=== PATIENT | female | born 1945 | race Caucasian/White ===

== ENCOUNTER 2017-12-27 11:27 | Inpatient (IN) | payer MEDICARE, OTHER, MEDICAID ==
[~2017-12-27] VITALS: Ht 165.1 cm; Wt 74.7 kg
[~2017-12-27 11:27] MED LIST: ALPR0.5T99 PO; ATOR20TA42 PO; AZIT250T43 PO; OMEP20TA PO; PRIN10TA PO
[2017-12-27] MEDS ORDERED: ONDANSETRON HCL 4 MG/2 ML VIAL IV ONE (12:00)
[2017-12-27] MEDS ORDERED: PROPOFOL 200 MG/20 ML AMP IV ONE (12:00)
[2017-12-27] MEDS ORDERED: ROCURONIUM INJ 50 MG/5 ML SYRINGE IV PUSH ONE (12:00)
[2017-12-27] MEDS ORDERED: LIDOCAINE HCL 1% PF 5 ML SYRINGE OTHER ONE (12:00)
[2017-12-27] MEDS ORDERED: DEXAMETHASONE SOD PHOS 4 MG/ML VIAL IV ONE (12:00)
[2017-12-27] MEDS ORDERED: NEOSTIGMINE 5 MG/5 ML SYRINGE IV PUSH ONE (12:00)
[2017-12-27] MEDS ORDERED: GLYCOPYRROLATE 1 MG/5 ML SYRINGE IV PUSH ONE (12:00)
[2017-12-27] MEDS ORDERED: LACTATED RINGER'S 1000 ML IV PRN (12:15)
[2017-12-27] MEDS ORDERED: CHLORHEXIDINE GLUCONATE 2 % 1 PACK (2 CLOTHS) TOPICAL PRN (12:15)
[2017-12-27] MEDS ORDERED: SODIUM CHLORID 0.9% 500 ML IV PRN (12:15)
[2017-12-27] MEDS ORDERED: METOPROLOL TARTRATE 25 MG TAB PO PRN (12:15)
[2017-12-27] MEDS ORDERED: ceFAZolin 2 GM PREMIX 50 ML IV SCH (12:30)
[2017-12-27] MEDS ORDERED: METRONIDAZOLE 500 MG/100 ML ISONTONIC SOLN IV SCH (12:30)
[2017-12-27] MEDS ORDERED: ALVIMOPAN 12 MG CAPSULE - On Call PO SCH (12:45)
[2017-12-27] MEDS ORDERED: ALPR2TAB3 PO (12:55)
[2017-12-27] MEDS ORDERED: LOSA50TA PO (12:55)
[2017-12-27] MEDS ORDERED: FENO160T PO (12:55)
[2017-12-27] MEDS ORDERED: PANT40TA3 PO (12:55)
[2017-12-27] MEDS ORDERED: CALC500T37 PO (13:02)
[2017-12-27] MEDS ORDERED: CHOL5000 PO (13:02)
[2017-12-27] MEDS ORDERED: VITA100022 PO (13:03)
[2017-12-27] MEDS ORDERED: GARL1000 PO (13:04)
[2017-12-27 13:19] LABS: AUTOMATED NEUTROPHIL # 3.7 TH/MM3 (1.8-7.7); BASOPHIL % 0.5 % (0.0-2.0); EOSINOPHIL % 0.8 % (0.0-4.0); HEMATOCRIT 38.5 % (35.0-46.0); LYMPH % 29.9 % (9.0-44.0); LYMPHOCYTE # 1.8 TH/MM3 (1.0-4.8); MEAN CORPUSCULAR HEMOGLOBIN 30.1 PG (27.0-34.0); MEAN CORPUSCULAR HGB CONC 33.8 % (32.0-36.0); MEAN PLATELET VOLUME 7.9 FL (7.0-11.0); MONOCYTE # 0.4 TH/MM3 (0-0.9); NEUT % 61.8 % (16.0-70.0); PLATELET COUNT 245 TH/MM3 (150-450); RED BLOOD COUNT 4.32 MIL/MM3 (4.00-5.30); RED CELL DISTRIBUTION WIDTH 13.4 % (11.6-17.2); WHITE BLOOD COUNT 5.9 TH/MM3 (4.0-11.0)
[2017-12-27] MEDS ORDERED: BUPIVACAINE/EPINEPHRINE 0.25% 50 ML VIAL ONE (13:28)
[2017-12-27 13:40] LABS: ALBUMIN 3.9 GM/DL (3.4-5.0); ALT (GPT) 15 U/L (10-53); AST (GOT) 17 U/L (15-37); BLOOD UREA NITROGEN 11 MG/DL (7-18); CALCIUM 8.7 MG/DL (8.5-10.1); CHLORIDE 109 MEQ/L (98-107); CREATININE 0.79 MG/DL (0.50-1.00); GLOMERULAR FILTRATION RATE 72 ML/MIN (>89); GLUCOSE,RANDOM 95 MG/DL (74-106); SODIUM (NA) 140 MEQ/L (136-145)
[2017-12-27 13:42] LABS: ALKALINE PHOSPHATASE 34 U/L (45-117); TOTAL BILIRUBIN ADULT 0.5 MG/DL (0.2-1.0); TOTAL PROTEIN 7.2 GM/DL (6.4-8.2)
[2017-12-27] MEDS ORDERED: DO NOT ADM ANY ANTICOAGULANT DRUGS PRN (15:31)
--- NOTE | 2017-12-27 15:31 | PD.PROCEDR ---
Procedure Note Procedure Operative report Preoperative diagnosis Fungating polyp highly atypical suspicious for adenocarcinoma of the colon transverse colon Postoperative diagnosis Same Procedure Laparoscopic assisted partial colectomy transverse colon Surgeon Akbar Benitez MD [employer]ist surgeon Parth Brothers MD Anesthesia General endotracheal Indications for procedure. 72-year-old woman sent to me in consultation by Dr. DANIA OLIVER for evaluation of a fungating polyp of the transverse colon. Biopsy demonstrated atypical changes bordering on adenocarcinoma. Patient was desirous of excision. Laparoscopic-assisted resection was offered. Intraoperative findings Mid transverse colon including Birdie ink markings and palpable abnormality between the 2 markings sent to pathology for permanent section. Suture on distal margin. Estimated blood loss 10 mL. Description of procedure in detail The patient was identified as Jaclyn Hayward taken to the operating room and placed in a supine position. Sequential compression devices were placed on bilateral lower extremities. Following induction of adequate general endotracheal anesthesia patient's abdomen was prepped and draped in usual sterile fashion with Betadine. A timeout procedure was performed. Following completion of the timeout procedure everyone's satisfaction within the room local anesthetic was infiltrated in the supraumbilical midline. A 2 cm vertical incision was carried out the scalpel dissection continued posteriorly to level of midline fascia in the supraumbilical position. The base of the umbilicus was retracted anteriorly the supraumbilical fascia was incised and entering the peritoneal cavity facilitative the surgeon's finger. The applied medical balloon was sewn trochars placed in the peritoneal cavity splint inflated and CO2 insufflation to level of 15 mmHg ensued. 2 right-sided 5 mm trochars 1 left upper quadrant 5 mm trocar was then placed into the peritoneal cavity under direct laparoscopic view after incision and skin with the scalpel. Attention was turned first to mobilizing a generous omentum superiorly and placing the patient in slight Trendelenburg position facilitate this. The 2 Birdie ink markings were identified which were positioned both proximally distally to the fungating polyp by Dr. DANIA OLIVER during colonoscopy. Using the harmonic scalpel the omentum was mobilized proximal and distal to the area of concern at least 8 cm in each direction. The mid transverse colon which is where the area of concern was located was already fairly mobile. Following this laparoscopic mobilization it was felt the area of concern could be brought out through a small upper midline incision to facilitate resection and anastomosis. More local anesthetic was placed in the supraumbilical midline in the previous and the incision was extended about 6 cm superiorly. Electrocautery was used for hemostasis and dissection continued posteriorly down the level of the midline fascia. The fascial incision from the supraumbilical port was extended superiorly allowing for the peritoneal incision to be the length of the skin incision. The small size Riddhi YAIR a wound retracting system was placed in the normal fashion in the transverse colon was easily identified and brought up through the wound. The distal resection or division was created first using a linear cutting stapling device after a window in the mesentery was developed with electrocautery. Harmonic Scalpel was used then to divide the mesentery of the transverse colon. On 2 occasions 3-0 silk and 2-0 Vicryl ligatures were used to divide larger vessels within the mesentery. Attention was then turned to the proximal division of the colon. About 8 cm proximal to the area of concern transverse colon was selected and divided with the linear cutting stapling device after window in the mesentery was developed with electrocautery. Mesentery was then taken down using the harmonic scalpel. The main vascular supply to this segment of the colon was then divided between My clamps and ligated with 2-0 Vicryl ties. Specimen was then removed in its entirety after placing a silk suture on the distal margin. It was passed off the field for pathologic evaluation. Attention was then turned towards a primary functional end-to-end anastomosis. Using 3-0 silk the line of the tinea of the proximal and distal limbs of the transverse colon small defects in the tinea adjacent to the staple lines were made with electrocautery and the linear cutting stapling device was used in a traditional fashion to create a functional end-to-end, side to side anastomosis. The staple lines were examined inside the new anastomosis and there is no evidence of hemorrhage. The end of the opening was then closed with a TA stapling device. Three-year silk sutures were used to take pressure off the distal staple line as well as to cover the staple lines approximately using appendices epiploic a fatty tissue to reinforce the closure. There is no evidence of tension on the anastomosis. It appeared patent. There was no large mesenteric rent to close. The anastomosis was returned to the peritoneal cavity and generous omentum was draped over the new anastomosis. The wound retractor was removed and the midline fascial incision was closed with a running #1 single-stranded PDS suture. The subcutaneous space was irrigated copiously with saline. Interrupted 2-0 Vicryl sutures were placed to approximate subcutaneous fatty tissue and the skin was approximated with a running 4-0 Monocryl septic your suture in the upper midline as well as at the 5 mm trocar sites. Dressings were applied with Mastisol half-inch brown Steri- Strips. An island type dressing was placed over the supraumbilical midline incision. The patient tolerated the procedures without apparent complication. Sponge needle and instrument counts were correct at the end of the case. Akbar Benitez MD Dec 27, 2017 15:31
[2017-12-27] MEDS ORDERED: MIDAZOLAM HCL 2 MG/2 ML VIAL ONE (15:40)
[2017-12-27] MEDS ORDERED: Post-op Orders (for Pharmacy) XX ONE (15:45)
[2017-12-27] MEDS ORDERED: ENALAPRILAT 1.25 MG/ML VIAL IV PUSH PRN (15:45)
[2017-12-27] MEDS ORDERED: ALPRAZolam 1 MG TAB PO PRN (15:45)
[2017-12-27] MEDS ORDERED: ONDANSETRON HCL 4 MG/2 ML VIAL IV PUSH PRN (15:45)
[2017-12-27] MEDS ORDERED: ACETAMINOPHEN 1000 MG/100 ML 100 ML IV ONE ×2 (15:55→16:00)
[2017-12-27] MEDS ORDERED: *morphine SULFATE 10 MG/ML PERIprocedure ONLY ONE (16:11)
[2017-12-27] MEDS: LACTATED RINGER'S 1000 ML INJ 1,000 ML IV SCH (16:15)
[2017-12-27] MEDS: KETOROLAC TROMETHAMINE 30 MG/ML (IVP) VIAL IVP PRN ×2 (16:20→23:59)
[2017-12-27] MEDS ORDERED: *morphine SULFATE 4 MG/ML PERIprocedure ONLY ONE (16:47)
[2017-12-27 21:18] VITALS: BP 146/70; PULSE 91; RESP 20; TEMP 96.3; O2SAT 96
[2017-12-27] MEDS: ACETAMINOPHEN 1000 MG/100 ML 100 ML IV SCH (22:44)
[2017-12-28] VITALS: BP 120/58; PULSE 73; RESP 18; TEMP 97.5; O2SAT 95
[2017-12-28] MEDS: LACTATED RINGER'S 1000 ML INJ 1,000 ML IV SCH ×3 (02:00→23:10)
[2017-12-28 04:00] VITALS: BP 123/61; PULSE 73; RESP 18; TEMP 96.3; O2SAT 92
[2017-12-28] MEDS: ACETAMINOPHEN/HYDROcodone 325 MG/5 MG TAB PO PRN ×3 (04:08→23:05)
[2017-12-28] MEDS: ACETAMINOPHEN 1000 MG/100 ML 100 ML IV SCH ×3 (06:36→19:48)
[2017-12-28 07:51] VITALS: BP 98/54; PULSE 107; RESP 16; TEMP 96.9; O2SAT 92
--- NOTE | 2017-12-28 08:07 | HHI.PR ---
Subjective Subjective Notes Patient had a difficult night as she was unable to void on her own. She underwent an I and O cath twice which helped relieve her bladder distention. She has had a previous bladder sling procedure and lately has been having problems voiding too much, now she cannot avoid enough. She is tolerated liquids without emesis. She had mild nausea. She is hungry and would like some food and some tea which she says always helps her go to the bathroom. Objective Vitals/I&O Vital Signs Date Time Temp Pulse Resp B/P (MAP) Pulse Ox O2 Delivery O2 Flow Rate FiO2 12/28/17 07:51 96.9 107 16 98/54 (69) 92 12/27/17 20:30 Nasal Cannula 2 Labs Laboratory Tests Test 12/27/17 12:45 White Blood Count 5.9 Red Blood Count 4.32 Hemoglobin 13.0 Hematocrit 38.5 Mean Corpuscular Volume 89.0 Mean Corpuscular Hemoglobin 30.1 Mean Corpuscular Hemoglobin Concent 33.8 Red Cell Distribution Width 13.4 Platelet Count 245 Mean Platelet Volume 7.9 Neutrophils (%) (Auto) 61.8 Lymphocytes (%) (Auto) 29.9 Monocytes (%) (Auto) 7.0 Eosinophils (%) (Auto) 0.8 Basophils (%) (Auto) 0.5 Neutrophils # (Auto) 3.7 Lymphocytes # (Auto) 1.8 Monocytes # (Auto) 0.4 Eosinophils # (Auto) 0.0 Basophils # (Auto) 0.0 CBC Comment DIFF FINAL Differential Comment Blood Urea Nitrogen 11 Creatinine 0.79 Random Glucose 95 Total Protein 7.2 Albumin 3.9 Calcium Level 8.7 Alkaline Phosphatase 34 Aspartate Amino Transf (AST/SGOT) 17 Alanine Aminotransferase (ALT/SGPT) 15 Total Bilirubin 0.5 Sodium Level 140 Potassium Level 3.9 Chloride Level 109 Carbon Dioxide Level 26.0 Anion Gap 5 Estimat Glomerular Filtration Rate 72 Cardiovascular: Regular Lungs: Clear Abdomen: Non-distended, Other (Her incisions are all healing well without signs of infection. There is no drainage from the incisions were on the dressing. Her bowel sounds are normal.), Post-op tenderness (Her incision sites are all clean and dry. The dressing has no drainage. She has normal bowel sounds.) Extremities: No edema, Perfused, SCD's on A/P Assessment and Plan Postoperative day 1 status post laparoscopic-assisted segmental resection of the transverse colon for fungating polyp. Problems with emptying her bladder. She has history of bladder sling. If she is unable to void on her own we will place a García catheter and leave it in. She would like opportunity to eat some regular food. I have ordered a regular diet. She normally only takes 1 mg of Xanax not two and that was changed. I will check her basic metabolic profile and magnesium levels. I talked to both the patient and the bedside RN about the importance of her walking in the halls today. Akbar Benitez MD Dec 28, 2017 08:06
[2017-12-28] MEDS: LOSARTAN 50 MG TAB PO SCH (08:58)
[2017-12-28] MEDS ORDERED: GARLIC 1000 MG PO SCH (09:00)
[2017-12-28] MEDS: CYANOCOBALAMIN 1,000 MCG TAB PO SCH (09:41)
[2017-12-28] MEDS: PANTOPRAZOLE SOD 40 MG DELAYED RELEASE TAB PO SCH (09:42)
[2017-12-28] MEDS: FENOFIBRATE 145 MG TAB PO SCH (09:42)
[2017-12-28] MEDS: ALVIMOPAN 12 MG CAPSULE - Post-op dosing PO SCH ×2 (09:42→19:48)
[2017-12-28] MEDS: ASCORBIC ACID 500 MG TAB PO SCH (09:42)
[2017-12-28] MEDS: CHOLECALCIFEROL (VIT D3) 5000 UNIT CAP PO SCH (09:42)
[2017-12-28 10:09] LABS: BICARBONATE 24.5 MEQ/L (21.0-32.0); CALCIUM 7.7 MG/DL (8.5-10.1); CREATININE 0.74 MG/DL (0.50-1.00); MAGNESIUM 1.5 MG/DL (1.5-2.5)
[2017-12-28 12:00] VITALS: BP 117/58; PULSE 68; RESP 16; TEMP 97.9; O2SAT 98
[2017-12-28] MEDS: ENOXAPARIN SODIUM 40 MG/0.4 ML SYRINGE SQ SCH (15:16)
[2017-12-28 15:57] VITALS: BP 135/64; PULSE 65; RESP 18; TEMP 97.3; O2SAT 97
[2017-12-28] MEDS ORDERED: BENZOCAINE 6 MG/MENTHOL 10 MG LOZENGE BUCCAL PRN (18:45)
[2017-12-28] MEDS ORDERED: PHENOL 1.4% SOLN 180 ML BTL OROPHARYNG PRN (19:00)
[2017-12-28 20:00] VITALS: BP 174/86; PULSE 68; RESP 20; TEMP 98.3; O2SAT 95
[2017-12-28] MEDS ORDERED: ALVIMOPAN 12 MG CAPSULE PO SCH (21:00)
--- NOTE | 2017-12-28 21:49 | EKG ---
Date Performed: 12/27/2017 Time Performed: 12:21:46 PTAGE: 72 years EKG: Sinus rhythm NONSPECIFIC T-WAVE ABNORMALITY BORDERLINE ECG PREVIOUS TRACING : 08/31/2009 17.04 No significant change from previous tracing noted. DOCTOR: Darien Gomes Interpretating Date/Time 12/28/2017 21:47:42
[2017-12-28] MEDS: ALPRAZolam 1 MG TAB PO PRN (23:07)
[2017-12-29] VITALS: BP 131/62; PULSE 64; RESP 20; TEMP 96.6; O2SAT 93
[2017-12-29] MEDS: ACETAMINOPHEN 1000 MG/100 ML 100 ML IV SCH ×3 (06:13→20:13)
[2017-12-29] MEDS: LACTATED RINGER'S 1000 ML INJ 1,000 ML IV SCH ×2 (06:25→18:00)
[2017-12-29 08:00] VITALS: BP 111/64; PULSE 58; RESP 17; TEMP 97.9; O2SAT 95
--- NOTE | 2017-12-29 08:07 | HHI.PR ---
Subjective Subjective Notes Patient slept very well overnight. She woke up this morning feeling much better than she had the day before. She indicates her only problem continues to be her bladder. She has not passed flatus or had a bowel movement yet. She is taking in minimal oral intake with taking some liquids and a small amount of regular food. Objective Vitals/I&O Vital Signs Date Time Temp Pulse Resp B/P (MAP) Pulse Ox O2 Delivery O2 Flow Rate FiO2 12/29/17 00:00 96.6 64 20 131/62 (85) 93 12/27/17 20:30 Nasal Cannula 2 Labs Laboratory Tests Test 12/28/17 08:51 Blood Urea Nitrogen 13 Creatinine 0.74 Random Glucose 99 Calcium Level 7.7 Magnesium Level 1.5 Sodium Level 136 Potassium Level 4.0 Chloride Level 104 Carbon Dioxide Level 24.5 Anion Gap 8 Estimat Glomerular Filtration Rate 77 Cardiovascular: Regular Lungs: Clear Abdomen: Non-distended, Other (Her incision sites are all clean and dry. There is minimal dried bloody drainage on the dressing in the supraumbilical position which was removed. There is no erythema. She has normal bowel sounds. ), Post-op tenderness Extremities: No edema, Perfused, SCD's on A/P Assessment and Plan Postoperative day 2 status post laparoscopic-assisted segmental resection of the transverse colon for fungating polyp. Patient will get up and walk the halls a lot today. Plan will be for to remove her García catheter tonight in hopes that she will be able to void on her own tomorrow. Once she is passing flatus and/or moving her bowels and tolerating oral diet and pain medication by mouth she will be able to be discharged home. Her pathology is still pending. Akbar Benitez MD Dec 29, 2017 08:07
[2017-12-29] MEDS: CHOLECALCIFEROL (VIT D3) 5000 UNIT CAP PO SCH (08:34)
[2017-12-29] MEDS: ALVIMOPAN 12 MG CAPSULE - Post-op dosing PO SCH ×2 (08:34→20:06)
[2017-12-29] MEDS: FENOFIBRATE 145 MG TAB PO SCH (08:34)
[2017-12-29] MEDS: PANTOPRAZOLE SOD 40 MG DELAYED RELEASE TAB PO SCH (08:34)
[2017-12-29] MEDS: ASCORBIC ACID 500 MG TAB PO SCH (08:34)
[2017-12-29] MEDS: LOSARTAN 50 MG TAB PO SCH (08:35)
[2017-12-29] MEDS: CYANOCOBALAMIN 1,000 MCG TAB PO SCH (08:35)
[2017-12-29 12:00] VITALS: BP 123/66; PULSE 63; RESP 17; TEMP 97.8; O2SAT 93
[2017-12-29] MEDS: ENOXAPARIN SODIUM 40 MG/0.4 ML SYRINGE SQ SCH (15:44)
[2017-12-29 16:00] VITALS: BP 111/65; PULSE 64; RESP 17; TEMP 97; O2SAT 95
[2017-12-29] MEDS: ALPRAZolam 1 MG TAB PO PRN (20:06)
[2017-12-29] MEDS: ACETAMINOPHEN/HYDROcodone 325 MG/5 MG TAB PO PRN (20:06)
[2017-12-29 21:28] VITALS: BP 120/57; PULSE 64; RESP 18; TEMP 97.6; O2SAT 96
[2017-12-30] VITALS: BP 122/64; PULSE 61; RESP 16; TEMP 98.3; O2SAT 94
[2017-12-30] MEDS: LACTATED RINGER'S 1000 ML INJ 1,000 ML IV SCH ×3 (04:00→21:01)
[2017-12-30] MEDS: ACETAMINOPHEN 1000 MG/100 ML 100 ML IV SCH ×3 (05:36→21:00)
[2017-12-30] MEDS: ACETAMINOPHEN/HYDROcodone 325 MG/5 MG TAB PO PRN ×4 (05:36→20:58)
[2017-12-30 08:00] VITALS: BP 116/62; PULSE 58; RESP 15; TEMP 97.7; O2SAT 96
[2017-12-30] MEDS: LOSARTAN 50 MG TAB PO SCH (08:56)
[2017-12-30] MEDS: CHOLECALCIFEROL (VIT D3) 5000 UNIT CAP PO SCH (08:56)
[2017-12-30] MEDS: FENOFIBRATE 145 MG TAB PO SCH (08:56)
[2017-12-30] MEDS: CYANOCOBALAMIN 1,000 MCG TAB PO SCH (08:56)
[2017-12-30] MEDS: ALVIMOPAN 12 MG CAPSULE - Post-op dosing PO SCH ×2 (08:56→20:56)
[2017-12-30] MEDS: ASCORBIC ACID 500 MG TAB PO SCH (08:56)
[2017-12-30] MEDS: PANTOPRAZOLE SOD 40 MG DELAYED RELEASE TAB PO SCH (08:56)
[2017-12-30 12:00] VITALS: BP 119/65; PULSE 57; RESP 15; TEMP 95.8; O2SAT 95
--- NOTE | 2017-12-30 13:26 | HHI.PR ---
Subjective Subjective Notes pain controlled, no new c/o Objective Vitals/I&O Vital Signs Date Time Temp Pulse Resp B/P (MAP) Pulse Ox O2 Delivery O2 Flow Rate FiO2 12/30/17 12:00 95.8 57 15 119/65 (83) 95 12/27/17 20:30 Nasal Cannula 2 Cardiovascular: Regular Lungs: Clear Abdomen: Non-distended, Post-op tenderness Extremities: Perfused A/P Assessment and Plan 72yo female s/p partial colectomy, stable. await bowel function, pain controlled, tolerating PO. Dayron Saenz MD Dec 30, 2017 13:26
[2017-12-30] MEDS: ENOXAPARIN SODIUM 40 MG/0.4 ML SYRINGE SQ SCH (14:56)
[2017-12-30 16:00] VITALS: BP 141/72; PULSE 54; RESP 16; TEMP 97; O2SAT 98
[2017-12-30 20:45] VITALS: BP 161/69; PULSE 75; RESP 16; TEMP 96.7; O2SAT 97
[2017-12-30] MEDS: ALPRAZolam 1 MG TAB PO PRN (20:56)
[2017-12-31 00:39] VITALS: BP 114/65; PULSE 61; RESP 16; TEMP 96.9; O2SAT 95
[2017-12-31] MEDS: ACETAMINOPHEN 1000 MG/100 ML 100 ML IV SCH (06:00)
[2017-12-31 08:00] VITALS: BP 131/76; PULSE 67; RESP 18; TEMP 96.3; O2SAT 96
[2017-12-31] MEDS: CHOLECALCIFEROL (VIT D3) 5000 UNIT CAP PO SCH (08:15)
[2017-12-31] MEDS: ALVIMOPAN 12 MG CAPSULE - Post-op dosing PO SCH (08:15)
[2017-12-31] MEDS: ASCORBIC ACID 500 MG TAB PO SCH (08:15)
[2017-12-31] MEDS: LOSARTAN 50 MG TAB PO SCH (08:15)
[2017-12-31] MEDS: CYANOCOBALAMIN 1,000 MCG TAB PO SCH (08:16)
[2017-12-31] MEDS: FENOFIBRATE 145 MG TAB PO SCH (08:16)
[2017-12-31] MEDS: PANTOPRAZOLE SOD 40 MG DELAYED RELEASE TAB PO SCH (08:16)
[2017-12-31] MEDS: LACTATED RINGER'S 1000 ML INJ 1,000 ML IV SCH (10:00)
--- NOTE | 2017-12-31 10:47 | HHI.PR ---
Subjective Subjective Notes no issues, tolerating diet, +bm Objective Vitals/I&O Vital Signs Date Time Temp Pulse Resp B/P (MAP) Pulse Ox O2 Delivery O2 Flow Rate FiO2 12/31/17 08:00 96.3 67 18 131/76 (94) 96 12/27/17 20:30 Nasal Cannula 2 Lungs: Clear Abdomen: Other (incisional tenderness c/d/i) A/P Assessment and Plan 72yo female s/p partial colectomy, stable. +bm plan reg diet oob po pain control d/c home today Byron Amezcua MD Dec 31, 2017 10:47
== END 2017-12-31 11:10 | disposition home or self-care (01) | DRG 331 ==
LOC: HSDI 11:27 → N07B 20:43
PROVIDERS: ADMIT Surgery Trauma Surgery; ATTEND Surgery Trauma Surgery
PROC: 0DBL0ZZ Excision of Transverse Colon, Open Approach (ICD-10-PCS; principal; 2017-12-27 13:40)
DX: C18.4 Malignant neoplasm of transverse colon (principal); N32.89 Other specified disorders of bladder; K63.5 Polyp of colon; I10 Essential (primary) hypertension; K59.00 Constipation, unspecified; R39.198 Other difficulties with micturition
CPT/HCPCS: 80048; 80053; 83735; 85025; 88309; 93005; 94150; J0131; J0690; J1100; J1650; J1885; J2250; J2270; J2405; J2710; J3010; J7120